=== PATIENT | female | born 1955 | race Two or more races ===

== ENCOUNTER 2016-12-29 20:12 | Emergency (ER) | payer SELFPAY ==
[2016-12-29 20:22] VITALS: BP 203/87
[2016-12-29] MEDS ORDERED: PENI500T PO (20:35)
[2016-12-29] MEDS ORDERED: NAPR250T2 PO (20:35)
[2016-12-29] MEDS: NAPROXEN 500 MG TABLET PO ONE (20:37)
[2016-12-29] MEDS: PENICILLIN V K 250 MG TABLET. PO ONE (20:37)
--- NOTE | 2016-12-29 20:46 | ED.ADGEN ---
Past History Past Medical History: No Pertinent History Past Surgical History: No Surgical History Alcohol Use: None Drug Use: None Adult General HPI HPI Patient is a 61-year-old woman with no reported past medical history, who presents the emergency department with a complaint of dental pain for the past 3 weeks. Patient is primarily Amharic speaking, translation is assisted with family at bedside at patient's request. Patient is able to understand and comply with requests. Patient denies any fevers or chills, nausea vomiting, any ear pain, any headache, any focal weakness, numbness, tingling, chest pain or shortness breath. No difficulty swallowing or breathing, complains of pain throughout the entire frontal part of the lower jaw, both sides, denies any injuries, patient is noted to be primarily edentulous, aside from tooth 23-26, no other teeth are present. No recent travel or procedures. Patient took ibuprofen at home about 4 hours prior to coming to the ED. She does not currently have insurance or a dentist. Review of Systems Review of Systems Constitutional: Denies fever or chills [] Eyes: Denies change in visual acuity, redness, or eye pain [] HENT: Denies nasal congestion or sore throat, complaining of pain in the lower jaw. [] Respiratory: Denies cough or shortness of breath [] Cardiovascular: No additional information not addressed in HPI [] GI: Denies abdominal pain, nausea, vomiting, bloody stools or diarrhea [] : Denies dysuria or hematuria [] Musculoskeletal: Denies back pain or joint pain [] Integument: Denies rash or skin lesions [] Neurologic: Denies headache, focal weakness or sensory changes [] Endocrine: Denies polyuria or polydipsia [] Current Medications Current Medications Current Medications Medications (Trade) Dose Ordered Sig/Sherita Start Time Stop Time Status Last Admin Dose Admin Naproxen (Naprosyn) 250 mg 1X ONCE 12/29/16 20:45 12/29/16 20:46 12/29/16 20:37 250 MG Penicillin V Potassium (Veetid) 500 mg 1X ONCE 12/29/16 20:45 12/29/16 20:46 12/29/16 20:37 500 MG Allergies Allergies Allergies Coded Allergies Type Severity Reaction Last Updated Verified No Known Allergies Allergy Unknown 12/29/16 Yes Physical Exam Physical Exam Constitutional: Well developed, well nourished, no acute distress, non-toxic appearance. [] HENT: Normocephalic, atraumatic, bilateral external ears normal, oropharynx moist, no oral exudates, nose normal. Patient is primarily edentulous, both upper and lower jaws, only tooth 23 through tooth 26 are present in the lower jaw, the mucosa is intact, there is no trismus, no brawny edema or tongue swelling, oropharynx is clear, patient complains of pain for this location, but no abscesses, evidence of induration or other concerning findings indicative of acute infection or other acute abnormality are identified. Eyes: PERRLA, EOMI, conjunctiva normal, no discharge. [] Neck: Normal range of motion, no tenderness, supple, no stridor. [] Cardiovascular:Heart rate regular rhythm, no murmur, S1, S2, rubs or gallops. [] Lungs & Thorax: Bilateral breath sounds clear to auscultation, no wheezing, rhonchi, rales. No chest wall crepitus or tenderness. [] Abdomen: Bowel sounds normal, soft, no tenderness, no masses, no pulsatile masses. [] Skin: Warm, dry, no erythema, no rash. [] Extremities: No tenderness, no cyanosis, no clubbing, ROM intact, no edema. [] Neurologic: Alert and oriented X 3, normal motor function, normal sensory function, no focal deficits noted. [] Psychologic: Affect normal, judgement normal, mood normal. [] Current Patient Data Vital Signs Vital Signs Date Time Temp Pulse Resp B/P (MAP) Pulse Ox O2 Delivery O2 Flow Rate FiO2 12/29/16 20:22 98.7 85 20 97 Room Air EKG EKG Not indicated. [] Radiology/Procedures Radiology/Procedures Not indicated. [] Course & Med Decision Making Course & Med Decision Making Pertinent Labs and Imaging studies reviewed. (See chart for details) Patient well-appearing, noted be mildly hypertensive, otherwise vital signs are within normal limits. Complaining of pain across the entire frontal lower jaw, where she is primarily edentulous as stated, no evidence of abscess formation, induration or other acute findings on examination. External jaw examination, neck examination are unremarkable, and oropharynx is clear. No concerning findings identified and examination. No injuries or concerning history or reported. Discussed with patient and family at bedside the patient is best served by seeing a dentist, that all the patient is not ill insurance, there are multiple clinics which are available, family was provided with a list of the dental clinics with contact information. Although I do not see evidence of active infection at this time, due to patient's complaints and concern for follow-up we'll treat prophylactically of penicillin VK, and with an inflammatory medications, patient was given first dose of naproxen 250 mg once in the ED without issue. Patient discharged home in stable condition with family with plan to follow-up with a dentist, and return to the ED for concerning symptoms as discussed, with prescriptions as stated. Final Impression Final Impression [] Problems: Dragon Disclaimer Dragon Disclaimer This electronic medical record was generated, in whole or in part, using a voice recognition dictation system. Departure: Impression: Primary Impression: Pain, dental Disposition: 01 HOME, SELF-CARE Condition: STABLE Scripts Naproxen (NAPROXEN) 250 Mg Tablet 250 MG PO BID Y for PAIN, #10 TAB 1 tablet by mouth up to twice daily as needed for pain. Take with food, stop use if stomach upset develops. Do not mix with other anti-inflammatory medications. Prov: CARMEN RAM DO 12/29/16 Penicillin V Potassium (PENICILLIN V POTASSIUM) 500 Mg Tablet 1 TAB PO QID, #40 TAB Prov: CARMEN RAM DO 12/29/16 CARMEN RAM DO Dec 29, 2016 20:45
== END 2016-12-29 20:40 | disposition home or self-care (01) ==
LOC: ER 20:12
DX: K08.89 Other specified disorders of teeth and supporting structures (principal)
CPT/HCPCS: 99283